=== PATIENT | female | born 1980 | race Caucasian/White ===

== ENCOUNTER → 2016-12-27 | Outpatient (CLI) | payer OTHER | LOC: RAD 15:59 | DX: M54.5 Low back pain (principal); R51 Headache; V89.2XXA Person injured in unspecified motor-vehicle accident, traffic, initial encounter; Y93.89 Activity, other specified; Y92.89 Other specified places as the place of occurrence of the external cause; Y99.8 Other external cause status; M54.2 Cervicalgia ==

== ENCOUNTER → 2018-07-09 | Outpatient (CLI) | payer OTHER | LOC: RAD 14:03 | DX: M79.672 Pain in left foot (principal) ==